=== PATIENT | female | born 1940 | race Caucasian/White ===

== ENCOUNTER → 2019-11-09 | Outpatient (CLI) | payer BC ==
[~2019-11-09] MED LIST: ACETAMINOPHEN325 M1 PO; ANALGESIC325 MG PO; ASPIRIN325 PO; ASPIRIN81 M2 PO; CALCIUM OR; CELEBREX50 MG PO; COLACE100 MG PO; COREG CR20 MG PO; FLAX OIL1000 MG PO; FOLIC ACID 40400 MCG PO; FOSINOPRIL 10 M10 M1 PO; LEVOTHROID50 MCG PO; MONOPRIL10 MG PO; NIACIN 500 MG500 M1 PO; OMEGA-31000 MG PO; PROBENECID-COL1 EACH PO; SIMVASTATIN40 MG PO; VITAMIN E400 UNIT PO; XARELTO10 M1 PO; XARELTO15 MG PO
== END | disposition home or self-care (01) ==
LOC: SJCVCIMAG 08:22
DX: I65.23 Occlusion and stenosis of bilateral carotid arteries (principal); I08.8 Other rheumatic multiple valve diseases; I25.10 Atherosclerotic heart disease of native coronary artery without angina pectoris; I25.5 Ischemic cardiomyopathy; E78.49 Other hyperlipidemia; I47.1 Supraventricular tachycardia; E78.00 Pure hypercholesterolemia, unspecified; Z87.891 Personal history of nicotine dependence

== ENCOUNTER → 2020-05-09 | Outpatient (CLI) | payer BC | LOC: SJCVC 13:08 | DX: I25.10 Atherosclerotic heart disease of native coronary artery without angina pectoris (principal); I25.5 Ischemic cardiomyopathy; I10 Essential (primary) hypertension; I65.23 Occlusion and stenosis of bilateral carotid arteries; I47.1 Supraventricular tachycardia; E78.5 Hyperlipidemia, unspecified; E11.9 Type 2 diabetes mellitus without complications; D35.9 Benign neoplasm of endocrine gland, unspecified; Z95.1 Presence of aortocoronary bypass graft; Z79.899 Other long term (current) drug therapy; Z87.891 Personal history of nicotine dependence ==

== ENCOUNTER → 2020-11-13 | Outpatient (CLI) | payer BC | LOC: SJCVC 12:56 | PROVIDERS: ATTEND Internal Medicine | DX: I25.810 Atherosclerosis of coronary artery bypass graft(s) without angina pectoris (principal); I25.5 Ischemic cardiomyopathy; I10 Essential (primary) hypertension; I65.23 Occlusion and stenosis of bilateral carotid arteries; I47.1 Supraventricular tachycardia; E78.5 Hyperlipidemia, unspecified; E11.9 Type 2 diabetes mellitus without complications; D32.9 Benign neoplasm of meninges, unspecified; I71.2 Thoracic aortic aneurysm, without rupture; J44.9 Chronic obstructive pulmonary disease, unspecified; Z82.49 Family history of ischemic heart disease and other diseases of the circulatory system; Z79.84 Long term (current) use of oral hypoglycemic drugs; Z79.899 Other long term (current) drug therapy; Z95.1 Presence of aortocoronary bypass graft ==

== ENCOUNTER → 2021-07-19 | Outpatient (CLI) | payer BC | LOC: SJCVCIMAG 08:31 | PROVIDERS: ATTEND Internal Medicine | DX: I08.8 Other rheumatic multiple valve diseases (principal); I65.23 Occlusion and stenosis of bilateral carotid arteries; I25.10 Atherosclerotic heart disease of native coronary artery without angina pectoris; I25.5 Ischemic cardiomyopathy; I10 Essential (primary) hypertension; I47.1 Supraventricular tachycardia; E78.5 Hyperlipidemia, unspecified; E11.9 Type 2 diabetes mellitus without complications; D32.9 Benign neoplasm of meninges, unspecified; I71.2 Thoracic aortic aneurysm, without rupture; Z95.1 Presence of aortocoronary bypass graft; Z87.891 Personal history of nicotine dependence; Z79.84 Long term (current) use of oral hypoglycemic drugs; Z79.899 Other long term (current) drug therapy ==